=== PATIENT | female | born 1985 | race Caucasian/White ===

== ENCOUNTER 2023-12-26 22:12 | Emergency (ER) | payer OTHER ==
[2023-12-26 22:24] VITALS: BP 130/86; PULSE 100; RESP 16; TEMP 99.5; BMI 30.1
[2023-12-26] MEDS ORDERED: ACETAMINOPHEN 500 MG TABLET (FP) ONE (23:02)
[2023-12-26] MEDS ORDERED: IBUPROFEN 600 MG TABLET (FP) PO ONE (23:02)
[2023-12-26] MEDS ORDERED: ONDANSETRON *ODT* 4 MG TABLET ONE (23:03)
[2023-12-26] MEDS: IBUPROFEN 600 MG TABLET (FP) PO ONE (23:04)
[2023-12-26] MEDS: ACETAMINOPHEN 500 MG TABLET (FP) PO ONE (23:05)
[2023-12-26] MEDS: ONDANSETRON *ODT* 4 MG TABLET SL ONE (23:05)
== END 2023-12-26 23:25 | disposition home or self-care (01) ==
LOC: JERFT 22:12 → JER 22:12 → JERFT 23:25
DX: U07.1 COVID-19 (principal); R11.0 Nausea; R42 Dizziness and giddiness
CPT/HCPCS: 0241U-QW; 99283-25; Q0162